=== PATIENT | male | born 1955 | race Two or more races ===

== ENCOUNTER 2021-09-21 02:18 | Emergency (ER) | payer MEDICAID, MEDICARE, OTHER ==
[~2021-09-21] VITALS: Ht 157.5 cm; Wt 71.7 kg
--- NOTE | 2021-09-21 03:08 | NUR ---
TO ER BED 4. BIBWIFE C/O EPIGASTRIC PAIN AND N/V SINCE MIDNIGHT. PAIN 10/10 ON P/S. PT STATES "WOKEN UP BY SUDDEN PAIN". CHANGED INTO GOWN. CONNECTED TO MONITOR. NOT IN RESPIRATORY DISTRESS. AWAITING MD SANDHU
[2021-09-21] MEDS ORDERED: ONDANSETRON HCL/PF 4 MG/2 ML VIAL ONE ×4 (03:24→09:29)
[2021-09-21] MEDS ORDERED: ONDANSETRON HCL/PF 4 MG/2 ML VIAL IVP ONE ×2 (03:30)
[2021-09-21] MEDS ORDERED: HYDROMORPHONE INJ 2 MG/ML DISP.SYRIN IV ONE (03:30)
[2021-09-21] MEDS ORDERED: MAG HYDROX/AL HYDROX/SIMETH 30 ML UDC PO ONE (03:30)
[2021-09-21] MEDS ORDERED: LIDOCAINE VISCOUS 2% UD 15 ML UDC MM ONE (03:30)
[2021-09-21] MEDS ORDERED: IV NS 0.9% 1,000 ML BAG IV ONE ×2 (03:30→05:30)
[2021-09-21] MEDS ORDERED: HYDROMORPHONE INJ 2 MG/ML DISP.SYRIN ONE (03:31)
[2021-09-21] MEDS ORDERED: MAG HYDROX/AL HYDROX/SIMETH 30 ML UDC ONE (03:42)
[2021-09-21] MEDS ORDERED: LIDOCAINE VISCOUS 2% UD 15 ML UDC ONE (03:43)
--- NOTE | 2021-09-21 03:53 | NUR ---
COVID SWAB COLLECTED ANS SENT
[2021-09-21 04:11] LABS: BASOPHILS % (AUTO) 0.6 % (0.0-2.0); EOSINOPHILS % (AUTO) 2.5 % (0.0-6.0); HEMATOCRIT 41 % (39-51); HEMOGLOBIN 14.1 g/dL (13.5-17.5); LYMPHOCYTES # (AUTO) 1.4 K/uL (0.8-4.8); LYMPHOCYTES % (AUTO) 28.7 % (20.0-44.0); MEAN CORPUSCULAR HGB CONC 34 g/dl (31.0-36.0); MEAN CORPUSCULAR VOLUME 99 fL (80-96); MONOCYTES # (AUTO) 0.5 K/uL (0.1-1.30); MONOCYTES % (AUTO) 9.9 % (2.0-12.0); NEUTROPHILS # (AUTO) 2.9 K/uL (1.8-8.9); NEUTROPHILS % (AUTO) 58.3 % (43.0-81.0); PLATELET COUNT (AUTO) 149 K/uL (150-450); RED BLOOD CELL COUNT(AUTO) 4.15 MIL/uL (4.5-6.0)
[2021-09-21 04:28] LABS: ALBUMIN 3.4 g/dL (3.4-5.0); BILIRUBIN,DIRECT 0.2 mg/dL (0.0-0.2); BILIRUBIN,TOTAL 0.4 mg/dL (0.2-1.0); CALCIUM, SERUM 9.1 mg/dL (8.5-10.1); POTASSIUM 3.8 mmol/L (3.5-5.1); TOTAL PROTEIN, SERUM 7.3 g/dL (6.4-8.2)
[2021-09-21] MEDS ORDERED: HYDROMORPHONE 1 MG/1 ML DISP.SYRIN ONE (04:48)
[2021-09-21] MEDS ORDERED: POTASSIUM CHLORIDE 20 MEQ TAB.PRT.SR PO ONE ×2 (04:49→05:00)
[2021-09-21] MEDS ORDERED: HYDROMORPHONE 1 MG/1 ML DISP.SYRIN IV ONE (05:00)
[2021-09-21] MEDS ORDERED: INSULIN REGULAR, HUMAN 100 UNIT/ML 10 ML VIAL IV ONE (05:00)
[2021-09-21] MEDS ORDERED: IV PREMIX 0.45% NS + KCL 1,000 ML IV ONE ×2 (05:00→05:23)
[2021-09-21] MEDS ORDERED: IV NS 0.9% 250 ML IV ONE (05:22)
[2021-09-21] MEDS ORDERED: IOHEXOL-350 100 ML VIAL IV ONE (05:22)
[2021-09-21] MEDS ORDERED: PIPERACILLIN /TAZOBACTAM 3.375 G VIAL IV ONE (06:28)
[2021-09-21] MEDS ORDERED: BLOOD SUGAR DIAGNOSTIC 1 EACH STRIP IN ONE (06:30)
[2021-09-21] MEDS ORDERED: PIPERACILLIN /TAZOBACTAM 3.375 G in IV D5W 50 ML IV ONE (06:30)
--- NOTE | 2021-09-21 06:30 | NUR ---
MD ADAMS NOTIFIED OF [facility] BS [id number]
--- NOTE | 2021-09-21 06:35 | NUR ---
[facility] CALLED FOR HIGHER LEVEL OF CARE. NO CAPACITY. TOLD TO CALL BACK AFTER 0800.
--- NOTE | 2021-09-21 06:40 | NUR ---
SPOUSE YAAKOVJULY LAGOSOS WOULD LIKE TO BE CALLED WITH HOSPITAL TRANSFER NAME AT
--- NOTE | 2021-09-21 06:40 | NUR ---
[facility] CALLED FOR HIGHER LEVEL OF CARE. [facility] FAXED TO [phone]
--- NOTE | 2021-09-21 06:54 | NUR ---
[facility] CALLED FOR HIGHER LEVEL OF CARE. [facility] FAXED TO [phone].
--- NOTE | 2021-09-21 06:55 | NUR ---
CALLED [facility] REGARDING HIGHER LEVEL OF CARE. THEY SAID TO CALL BACK IN A FEW MINUTES DUE TO GIVING REPORT PER RN PRODUCTION ILLUSTRATOR.
[2021-09-21 07:02] LABS: BASOPHILS % (AUTO) 0.4 % (0.0-2.0); EOSINOPHILS % (AUTO) 0.4 % (0.0-6.0); HEMATOCRIT 42 % (39-51); HEMOGLOBIN 14.3 g/dL (13.5-17.5); LYMPHOCYTES # (AUTO) 0.8 K/uL (0.8-4.8); LYMPHOCYTES % (AUTO) 12.6 % (20.0-44.0); MEAN CORPUSCULAR HGB CONC 34 g/dl (31.0-36.0); MEAN CORPUSCULAR VOLUME 98 fL (80-96); MONOCYTES # (AUTO) 0.4 K/uL (0.1-1.30); NEUTROPHILS % (AUTO) 80.6 % (43.0-81.0); PLATELET COUNT (AUTO) 154 K/uL (150-450); RED BLOOD CELL COUNT(AUTO) 4.24 MIL/uL (4.5-6.0); WHITE BLOOD COUNT (AUTO) 6.2 K/uL (4.3-11.0)
--- NOTE | 2021-09-21 07:03 | NUR ---
PER [facility], NO INTERVENTIONAL RADIOLOGY AVAILABLE.
[2021-09-21 07:25] LABS: CALCIUM, SERUM 8.3 mg/dL (8.5-10.1); CREATININE 0.9 mg/dL (0.6-1.3); POTASSIUM 4.1 mmol/L (3.5-5.1)
--- NOTE | 2021-09-21 08:25 | NUR ---
VITO FROM [facility] [phone] CALLED NEED TO GO THROUGH [facility] FOR ACCEPTANCE [phone].
[2021-09-21] MEDS ORDERED: ONDANSETRON HCL/PF - ER 4 MG/2 ML VIAL IV ONE (08:30)
[2021-09-21] MEDS ORDERED: ONDANSETRON HCL/PF 4 MG/2 ML VIAL IV ONE (09:30)
--- NOTE | 2021-09-21 10:02 | NUR ---
SPOKE TO TECHNICIAN [employer] JOSÉ MIGUEL OF [facility]
--- NOTE | 2021-09-21 10:51 | NUR ---
DR. LOBATO SPEAKING WITH DR. WATERMAN
[2021-09-21] MEDS ORDERED: BECL10.62 IH (10:58)
[2021-09-21] MEDS ORDERED: ALBU18HF2 IH (10:58)
[2021-09-21] MEDS ORDERED: LISI40TA13 PO (10:58)
[2021-09-21] MEDS ORDERED: CETI10TA14 PO (10:58)
[2021-09-21] MEDS ORDERED: AMLO-213 PO (10:58)
[2021-09-21] MEDS ORDERED: METF-442 PO (11:00)
--- NOTE | 2021-09-21 14:03 | NUR ---
PER [facility] HANDSTITCHING MACHINE COLLAR FELLER JOSÉ MIGUEL [phone], PATIENT ACCEPTED AT [place]. NO BED TILL AFTER 1500. ACCEPTING MD IS A HOSPITALIST AT [facility].
--- NOTE | 2021-09-21 16:09 | NUR ---
CALLED [phone] SPOKE WITH JOSSY VALDEZ TO CALL US WITH BED UPDATE.
[2021-09-21] MEDS ORDERED: LISINOPRIL (20MG) 20 MG TABLET PO SCH (17:00)
[2021-09-21] MEDS ORDERED: AMLODIPINE BESYLATE 5 MG TABLET PO ONE (17:00)
--- NOTE | 2021-09-21 17:11 | NUR ---
CALLED [facility] [phone] [facility] HERIBERTO WILL CALL US WITH BED ASSIGNMENT. PER TREVON DR. LOBATO ACCEPTED THE PATIENT.
--- NOTE | 2021-09-21 17:36 | NUR ---
HERIBERTO LÓPEZ [phone] CALLED PT ACCEPTED TO [place] ROOM 2340 AFTER 7PM. WILL CALL WHEN TRANSPORT HAS BEEN ARRANGED.
[2021-09-21] MEDS ORDERED: AMLODIPINE BESYLATE 10 MG TABLET ONE (17:59)
[2021-09-21] MEDS ORDERED: LISINOPRIL (20MG) 20 MG TABLET ONE (18:00)
--- NOTE | 2021-09-21 18:05 | NUR ---
[facility] RM# [id number]. [facility] TRANSF[facility], ETA 2130, REPORT [phone]
--- NOTE | 2021-09-21 18:40 | NUR ---
JULIO CESAR ISAAC IS ASKING FOR REPORT AFTER CHANGE OF SHIFT NUMBER FOR REPORT [phone]
--- NOTE | 2021-09-21 19:25 | NUR ---
REPORT GIVEN TO NURSE VIVEROS FOR GRAEME
--- NOTE | 2021-09-21 21:09 | NUR ---
REPORT GIVEN TO RICHARD
[2021-09-21 21:41] VITALS: BP 144/73
--- NOTE | 2021-09-21 21:52 | NUR ---
PT PICKED UP BY [facility]. V/S STABLE AT TIME OF TRANSFER.
== END 2021-09-21 21:55 | disposition short-term general hospital (02) ==
LOC: ER 02:31
DX: K55.9 Vascular disorder of intestine, unspecified (principal); F10.20 Alcohol dependence, uncomplicated; E11.65 Type 2 diabetes mellitus with hyperglycemia; R10.13 Epigastric pain; R94.31 Abnormal electrocardiogram [ECG] [EKG]; Z20.822 Contact with and (suspected) exposure to COVID-19; I10 Essential (primary) hypertension
CPT/HCPCS: 36415; 71045; 74175; 76705; 80048 ×2; 80076; 82010; 82150; 82962; 83605; 83690; 83880; 84484 ×2; 85025 ×2; 85730; 87426; 93005; 96361; 96365; 96367; 96375; 96376; 99285; J1170 ×2; J2405 ×4; J2543; J7050; J7060; Q9967; C9803